=== PATIENT | female | born 1960 | race Caucasian/White ===

== ENCOUNTER → 2023-08-26 | Outpatient (CLI) | payer BC ==
[2023-08-26 15:32] LABS: Basophils # (A) 0.05 X 10*3/uL (0.00-0.10); Basophils % (A) 1.1 %; Eosinophils # (A) 0.19 X 10*3/uL (0.04-0.35); Eosinophils % (A) 4.2 %; HCT 42.7 % (37.2-46.3); HGB 14.3 g/dL (12.0-15.0); Lymphocytes # (A) 1.83 X 10*3/uL (0.90-5.00); Lymphocytes % (A) 40.8 %; MCH 31.4 pg (27.0-32.0); MCHC 33.5 g/dL (32.0-37.0); MCV 93.8 FL (80.0-97.0); Mean Platelet Volume 10.3 FL (9.5-12.2); Monocytes # (A) 0.32 X 10*3/uL (0.20-1.00); Monocytes % (A) 7.1 %; NRBC Per 100 WBC 0 X 10*3/uL (0.00-0.01); Neutrophils # (A) 2.09 X 10*3/uL (1.80-7.70); Neutrophils % (A) 46.6 %; Platelet Count 312 X 10*3/uL (140-440); RBC 4.55 X 10*6/uL (4.10-5.20); RDW 13.3 % (11.5-14.5); WBC 4.49 X 10*3/uL (4.50-10.00)
[2023-08-26 16:04] LABS: Chloride 101 mmol/L (96-109); Sodium 141 mmol/L (135-145)
== END | disposition home or self-care (01) ==
LOC: LABWHC1 11:15
PROVIDERS: ATTEND Obstetrics & Gynecology
DX: Z01.818 Encounter for other preprocedural examination (principal); N81.6 Rectocele; N39.3 Stress incontinence (female) (male); I10 Essential (primary) hypertension
CPT/HCPCS: 36415; 80051; 82565; 84520; 85025; 86850; 86900; 86901; 87086; 93005

== ENCOUNTER 2023-09-05 05:47 | Day surgery (SDC) | payer BC ==
--- NOTE | 2023-09-01 13:08 | P.HPIHPCON ---
History of Present Illness H&P Date: 09/01/23 Chief Complaint: Vaginal bulge Ms. Dahl is a 63 year old who presents for definitive management of a rectocele and stress urinary incontinence. The bulge is estimated to be golf- ball sized. She does require bladder pressure and position changes to empty her bladder. She has urge incontinence, stress incontinence, and fecal incontinence as well. The symptoms are accentuated by standing, lifting, straining, exercise, bowel movements, urination, coughing, sneezing, and lifting heavy objects. The symptoms are relieved by lying down. She denies pelvic pain. The patient is s/p hysterectomy and ovaries are in situ. Consent for Procedure: I have explained the operation/procedure to the patient, including the risks, benefits, side effects, alternative therapies (including not receiving the proposed treatment or service), the likelihood of the patient achieving his/her goals, and potential recuperation problems for the procedure/sedation/analgesia, as well as any blood products, if indicated. I also explained to the patient the risks, benefits and side effects of the alternatives, as well as the risks related to not receiving the proposed procedure, care, treatment, or services. Past Medical History Past Medical History: Hyperlipidemia, Hypertension, Thyroid Disorder Additional Past Medical History / Comment(s): hypothyroidism, rectocele, left hand trigger finger, dyslexia History of Any Multi-Drug Resistant Organisms: None Reported Past Surgical History: Joint Replacement Additional Past Surgical History / Comment(s): left hip replacement 2020 Past Anesthesia/Blood Transfusion Reactions: No Reported Reaction Smoking Status: Never smoker Medications and Allergies Home Medications Medication Instructions Recorded Confirmed Type Cholecalciferol (Vitamin D3) 50 mcg PO DAILY 01/07/18 09/01/23 History [Vitamin D3] Levothyroxine Sodium [Synthroid] 75 mcg PO DAILY 01/07/18 09/01/23 History Allergy Relief 1 tab PO DAILY 09/01/23 09/01/23 History Aspirin [Adult Low Dose Aspirin EC] 81 mg PO DAILY 09/01/23 09/01/23 History Multivit with Calcium,Iron,Min 1 each PO DAILY 09/01/23 09/01/23 History [Women's Multivitamin] [place]-3/Dha/Epa/Fish Oil [Fish Oil 1 each PO DAILY 09/01/23 09/01/23 History EC 1,000 mg Softgel] Pravastatin Sodium 80 mg PO HS 09/01/23 09/01/23 History Allergies Allergy/AdvReac Type Severity Reaction Status Date / Time No Known Allergies Allergy Verified 09/01/23 10:11 Surgical - Exam Focused physical exam is performed in the office. This is a pleasant, healthy- appearing female in no apparent distress. Breathing is non-labored. Abdomen is soft, non-tender. A Grade 3 rectocele is present. Post void residual was wnl. Assessment and Plan Assessment: 63 year old with Grade 3 Rectocele and ELISA presenting for surgical management Plan: Risks, benefits, and alternatives of Posterior Repair, TVT Midurethral Sling, and Cystoscopy are discussed with the patient including risk of bleeding, infection, rectal perforation, bladder perforation, cystitis, and post-operative urinary retention possibly requiring temporary indwelling nichols catheter use. The patient understands these risks and desires to proceed with surgery as scheduled. All questions answered. Time with Patient: Less than 30
[2023-09-05] MEDS: LACTATED RINGERS 1,000 ML IV SCH (06:38)
[2023-09-05] MEDS: ONDANSETRON 4 MG/2 ML VIAL ONE (06:51)
[2023-09-05] MEDS: DEXAMETHASONE SOD PHOSPHATE 4 MG/ML 1 ML VIAL IVP ONE (06:52)
[2023-09-05] MEDS: MIDAZOLAM 2 MG/2 ML VIAL IVP ONE (07:02)
[2023-09-05] MEDS ORDERED: GLYCOPYRROLATE 0.2 MG/ML 2 ML VIAL ONE (07:29)
[2023-09-05] MEDS ORDERED: ePHEDrine 50 MG/ML 1 ML VIAL ONE (07:29)
[2023-09-05] MEDS ORDERED: LIDOCAINE 1% INJ 10MG/ML (20 ML MDV) ONE (07:29)
[2023-09-05] MEDS ORDERED: PROPOFOL 10 MG/ML 20 ML VIAL IV ONE (07:29)
[2023-09-05] MEDS ORDERED: MIDAZOLAM 2 MG/2 ML VIAL ONE (07:29)
[2023-09-05] MEDS ORDERED: fentaNYL (PF) 50 MCG/ML 2 ML AMP ONE (07:29)
[2023-09-05] MEDS ORDERED: PHENYLEPHRINE 10 MG/ML VIAL ONE (07:29)
[2023-09-05] MEDS ORDERED: NEOSTIGMINE 1 MG/ML 10 ML VIAL ONE (07:29)
[2023-09-05] MEDS ORDERED: SUCCINYLCHOLINE CHLORIDE 200 MG/10 ML VIAL IV ONE (07:29)
[2023-09-05] MEDS ORDERED: ROCURONIUM 10 MG/ML (5 ML VIAL) IV ONE (07:29)
[2023-09-05] MEDS: GENTAMICIN 80 MG in SODIUM CHLORIDE 0.9% 200 ML IRRIGATION ONE (08:00)
[2023-09-05] MEDS: VASOPRESSIN 20 UNIT in SODIUM CHLORIDE 0.9% 50 ML IV ONE (08:01)
[2023-09-05] MEDS: ESTRADIOL 0.1 MG/GM VAGINAL CREAM 42.5 GM TUBE VAGINAL ONE ×2 (08:02→08:23)
[2023-09-05] MEDS: VASOPRESSIN 20 UNIT/ML 1 ML VIAL SQ ONE (08:24)
[2023-09-05] MEDS ORDERED: SIMETHICONE 80 MG CHEWABLE PO PRN (08:57)
--- NOTE | 2023-09-05 08:58 | P.OP ---
Date of Procedure: 09/05/23 Preoperative Diagnosis: 1. Grade 3 Rectocele 2. 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 Stress Urinary Incontinence Postoperative Diagnosis: Same Procedure(s) Performed: Posterior Repair, TVT Midurethral Sling, Cystoscopy Implants: Advantage Fit TVT Midurethral Sling Anesthesia: ALANIS Surgeon: Gladis Pierre Scientific Systems Analyst #1: Kiesha Castorena Estimated Blood Loss (ml): 75 IV fluids (ml): 800 Urine output (ml): 30 Pathology: none sent Condition: stable Disposition: floor Indications for Procedure: Ms. Dahl is a 63 year old who presents for definitive management of a rectocele and stress urinary incontinence. Risks, benefits, and alternatives of Posterior Repair, TVT Midurethral Sling, and Cystoscopy are discussed with the patient including risk of bleeding, infection, rectal perforation, bladder perforation, cystitis, and post-operative urinary retention possibly requiring temporary indwelling nichols catheter use. The patient understands these risks and desires to proceed with surgery as scheduled. All questions answered. Operative Findings: Grade 3 Rectocele and Enterocele appreciated. Good support after posterior repair. On Cystoscopy after TVT Sling placement, no bladder wall injury is noted and bilateral ureteral jets are seen. Description of Procedure: The patient was taken to the operating room, where general anaesthesia was obtained. The patient was placed in the dorsal lithotomy position in Martín stirrups, prepped,and draped in normal sterile fashion. A Nichols catheter was placed into the bladder. A posterior colporrhaphy was performed by incising the posterior distal vaginal wall in a V-shape. The vaginal muscosa was hydrodissected off the rectum with diluted Vasporessin. The Metzenbaum Scissors were used to incise the vaginal muscosa to the apex of the rectocele and enterecele, near the vaginal cuff. The vaginal musosa was then sharply and bluntly dissected away from the rectum. The rectovaginal fascia was approximated with 0-Vicryl sutures. Excess vaginal muscos was trimmed off. The vaginal mucosa was then closed with 2-0 Vicryl in a running fashion. Attention was then turned to the TVT part of the procedure. Two sites were marked on the anterior abdominal wall with a marking pen, one 1 fingerbreadth to the left and the other 1 fingerbreadth to the right of the midline, just above the pubic bone.Two sites were marked on the anterior abdominal wall with a marking pen, one 1 fingerbreadth to the left and the other 1 fingerbreadth to the right of the midline, just above the pubic bone. Attention was now turned to the vaginal field where a 18-Green[place] Nichols catheter was already present, and the urine was drained. Retractors were used for visualization. The anterior vaginal wall over the location of the mid urethra was then injected with 1% lidocaine with epinephrine in the mid portion of the vagina and the lateral aspects heading to the inferior surface of the pubic bone bilaterally. Two Allis clamps were then placed approximately 2 cm apart with the mid portion of the Allis clamps corresponding to the mid portion of the urethra as determined by palpation of the Nichols within the patient's urethra. A scalpel was then used to incise between the 2 Allis clamps, and Metzenbaum scissors were used to dissect the vaginal mucosa off the urethra heading to the inferior surface of the pubic bone bilaterally. The [employer] Advantage Fit TVT trocar coupled to the plastic introducer sheath was now placed through the right sided anterior vaginal wall channel, and the trocar was rotated through the right retropubic space with careful attention being paid to stay beneath and behind the pubic bone as it rotated through the space up to the previously made yarelis on the right anterior abdominal wall. The TVT trocar was uncoupled from the introducer sheath and the sheath was tagged and left in place. The TVT trocar was now placed into the second introducer sheath and positioned within the left anterior vaginal wall channel and rotated through the left retropubic space with careful attention being paid to stay beneath and behind the pubic bone as it rotated through this site up to the previously made yarelis on the left anterior abdominal wall. 70-degree cystourethroscope was used to confirm that there was no trocar placement trauma to the bladder from either side, and no trauma to the urethra. Bilateral ureteral jets were visualized. Therefore, the bladder was drained, and the mesh was brought through the abdominal wall site. The mesh was brought to sit underneath of the urethra without any tensioning at all as determined by a hemostat used as a spacer between the urethra and the sling. The hemostat as a spacer was used to stabilize the position of the mesh as plastic sheaths were removed through the abdominal wall site. The skin wounds were closed with the use of skin glue after trimming the mesh. The vaginal wound was closed with a running stitch of 3-0 Vicryl. 1-inch vaginal packing coated with vaginal estrace was used to pack the vagina at the end of the case as a precautionary measure. Hemostasis was noted to be excellent throughout, and final sponge, instrument, and needle count was noted to be correct. The patient was moved back to the preoperative holding area in stable condition having tolerated the procedure well.
[2023-09-05] MEDS: HYDROmorphone 0.5 MG/0.5 ML SYRINGE IVP ONE (09:10)
[2023-09-05] MEDS: KETOROLAC 15 MG/ML 1 ML VIAL IVP PRN (10:18)
[2023-09-05] MEDS: ACETAMINOPHEN TAB 325 MG TAB PO PRN (13:34)
[2023-09-06 06:36] VITALS: PULSE 77; RESP 16
[2023-09-06] MEDS: IBUPROFEN 600 MG TAB PO PRN (08:11)
[2023-09-06 08:13] VITALS: BP 142/80; TEMP 98.5
[2023-09-06 08:17] LABS: Basophils % (A) 0 %; Eosinophils # (A) 0.1 k/uL (0-0.7); Eosinophils % (A) 1 %; HGB 11.8 gm/dL (11.4-16.0); Lymphocytes # (A) 1.6 k/uL (1.0-4.8); Lymphocytes % (A) 20 %; MCH 31.4 pg (25.0-35.0); MCHC 32.8 g/dL (31.0-37.0); MCV 95.6 fL (80.0-100.0); Mean Platelet Volume 7.6; Monocytes # (A) 0.3 k/uL (0-1.0); Monocytes % (A) 4 %; Neutrophils # (A) 5.8 k/uL (1.3-7.7); Neutrophils % (A) 73 %; Platelet Count 216 k/uL (150-450); RBC 3.76 m/uL (3.80-5.40); RDW 13.6 % (11.5-15.5); WBC 7.9 k/uL (3.8-10.6)
[2023-09-06] MEDS ORDERED: ACETAMINOPHEN TAB 325 MG TAB PO PRN (08:59)
--- NOTE | 2023-09-06 09:04 | P.DS ---
Providers Date of admission: Ms. Dahl is a 63 year old POD#1 s/p Posterior Repair, TVT Midurethral Sling, and Cystoscopy. The patient is doing well this morning and had no acute events overnight. She has no complaints this morning. She reports minimal vaginal spotting, passing flatus, voiding without difficulty, ambulating, and eating/drinking without nausea or vomiting. She denies chest pain, shortness of breathing, fevers, or chills overnight. She denies pain or swelling in the legs. Postoperative restrictions are reviewed with the patient including pelvic rest for 6 weeks, no lifting heavier than 15 pounds for 6 weeks. The patient is encouraged to call the office if she experiences any heavy bleeding, foul- smelling discharge, breast complaints, or any if she has any other concerns. She will follow up in the office with in 6 weeks for postoperative exam. She will go home with prescription Motrin and Tylenol. All questions are answered. Expected date of discharge: 09/06/23 Attending physician: Gladis Pierre MD Primary care physician: Michael Beckman Plan - Discharge Summary Discharge Rx Participant: No New Discharge Prescriptions: New Acetaminophen Tab [Tylenol] 650 mg PO Q6H PRN #30 tab PRN Reason: Mild Pain (Scale 1 To 3) Ibuprofen [Motrin] 600 mg PO Q6HR PRN #30 tab PRN Reason: Mild Pain (Scale 1 To 3) No Action Levothyroxine Sodium [Synthroid] 75 mcg PO DAILY Cholecalciferol (Vitamin D3) [Vitamin D3] 50 mcg PO DAILY [place]-3/Dha/Epa/Fish Oil [Fish Oil EC 1,000 mg Softgel] 1 each PO DAILY Multivit with Calcium,Iron,Min [Women's Multivitamin] 1 each PO DAILY Pravastatin Sodium 80 mg PO HS Aspirin [Adult Low Dose Aspirin EC] 81 mg PO DAILY Allergy Relief 1 tab PO DAILY hydroCHLOROthiazide 1 tab PO DAILY Discharge Medication List Cholecalciferol (Vitamin D3) [Vitamin D3] 50 mcg PO DAILY 01/07/18 [History] Levothyroxine Sodium [Synthroid] 75 mcg PO DAILY 01/07/18 [History] Allergy Relief 1 tab PO DAILY 09/01/23 [History] Aspirin [Adult Low Dose Aspirin EC] 81 mg PO DAILY 09/01/23 [History] Multivit with Calcium,Iron,Min [Women's Multivitamin] 1 each PO DAILY 09/01/23 [History] [place]-3/Dha/Epa/Fish Oil [Fish Oil EC 1,000 mg Softgel] 1 each PO DAILY 09/01/23 [History] Pravastatin Sodium 80 mg PO HS 09/01/23 [History] hydroCHLOROthiazide 1 tab PO DAILY 09/05/23 [History] Acetaminophen Tab [Tylenol] 650 mg PO Q6H PRN #30 tab 09/06/23 [Rx] Ibuprofen [Motrin] 600 mg PO Q6HR PRN #30 tab 09/06/23 [Rx] Follow up Appointment(s)/Referral(s): Gladis Pierre MD [STAFF PHYSICIAN] - 6 Weeks Activity/Diet/Wound Care/Special Instructions: Postoperative Instructions 1. No heavy lifting or straining (exercising) until after 6 week checkup. 2. Do not resume sexual relations for 6 weeks or longer if uncomfortable. 3. Keep abdominal incision clean and dry: You may wear a dressing if more comfortable. 4. Keep any areas repaired with stitches clean and dry. 5. Call the office, , within the next week to make appointment for your 2 week checkup 6. Report any of the following occurrences to the doctor promptly: a. Heavy, excessive bleeding b. Chills, fever Discharge Disposition: HOME SELF-CARE
== END 2023-09-06 15:53 | disposition home or self-care (01) ==
LOC: OR 05:47 → 4FBP 08:42 → OR 09-06 15:53
PROVIDERS: ATTEND Obstetrics & Gynecology
DX: N39.3 Stress incontinence (female) (male) (principal); N81.6 Rectocele; N81.5 Vaginal enterocele; I10 Essential (primary) hypertension; E07.9 Disorder of thyroid, unspecified; E78.5 Hyperlipidemia, unspecified; Z79.82 Long term (current) use of aspirin; Z79.899 Other long term (current) drug therapy; Z79.890 Hormone replacement therapy
CPT/HCPCS: 85025; 57250; 57288; J2250; J1580; J1100; J0690; J2405; J1885; J1170